=== PATIENT | male | born 1970 ===

== ENCOUNTER 2019-09-19 18:04 | Emergency (ER) | payer SELFPAY ==
[~2019-09-19] VITALS: Ht 182.9 cm; Wt 93.0 kg
[2019-09-19 18:06] VITALS: BP 160/104
[2019-09-19] MEDS ORDERED: DIABETIC MED PO (18:11)
[2019-09-19] MEDS ORDERED: HTN PO (18:11)
== END 2019-09-19 21:00 | disposition left against medical advice (07) ==
LOC: EMS 18:05
DX: Z53.21 Procedure and treatment not carried out due to patient leaving prior to being seen by health care provider (principal)